=== PATIENT | male | born 1965 | race Two or more races ===

== ENCOUNTER 2018-03-02 09:01 | Emergency (ER) | payer OTHER ==
[~2018-03-02] VITALS: Ht 167.6 cm; Wt 106.6 kg
[~2018-03-02 09:01] MED LIST: ASPIRIN81 MG; AVAPRO300 MG; INVOKANA300 MG; KOMBIGLYZE XR1 EAC2; LIPITOR20 MG; SYNTHROID100 MCG; TRICOR145 MG
[2018-03-02] MEDS ORDERED: SYNTHROID175 MCG PO (09:15)
[2018-03-02] MEDS ORDERED: MUPIROCIN22 GM TOP (14:33)
[2018-03-02] MEDS ORDERED: BACTRIM DS TAB1 EACH PO (14:33)
== END 2018-03-02 15:01 | disposition home or self-care (01) ==
LOC: ER 09:01
DX: N50.812 Left testicular pain (principal)

== ENCOUNTER 2018-08-09 16:37 | Emergency (ER) | payer OTHER ==
[~2018-08-09] VITALS: Ht 167.6 cm; Wt 108.9 kg
[~2018-08-09 16:37] MED LIST changes: +BACTRIM DS TAB1 EACH PO; +MUPIROCIN22 GM TOP; +SYNTHROID175 MCG PO
== END 2018-08-09 19:57 | disposition home or self-care (01) ==
LOC: ER 16:37
DX: S13.4XXA Sprain of ligaments of cervical spine, initial encounter (principal); V49.9XXA Car occupant (driver) (passenger) injured in unspecified traffic accident, initial encounter; Y93.89 Activity, other specified; Y92.488 Other paved roadways as the place of occurrence of the external cause; Y99.8 Other external cause status

== ENCOUNTER 2019-03-21 10:01 | Emergency (ER) | payer OTHER ==
[~2019-03-21] VITALS: Ht 167.6 cm; Wt 104.3 kg
== END 2019-03-21 15:46 | disposition home or self-care (01) ==
LOC: ER 10:01
DX: I88.0 Nonspecific mesenteric lymphadenitis (principal)

== ENCOUNTER 2022-08-10 09:30 | Emergency (ER) | payer OTHER ==
[~2022-08-10] VITALS: Ht 167.6 cm; Wt 102.1 kg
[2022-08-10] MEDS ORDERED: NIFEDIPINE ER60 M1 PO (09:46)
[2022-08-10] MEDS ORDERED: PENTOXIFYLLINE400 MG PO (09:46)
[2022-08-10] MEDS ORDERED: SYNJARDY XR 121 EACH PO (09:46)
[2022-08-10] MEDS ORDERED: SYNTHROID150 MCG PO (09:47)
[2022-08-10] MEDS ORDERED: OZEMPIC1 MG/0.71 SQ (09:47)
[2022-08-10] MEDS ORDERED: LOSARTAN POTAS100 MG PO (09:47)
[2022-08-10] MEDS ORDERED: GABAPENTIN100 M2 PO (09:47)
[2022-08-10] MEDS ORDERED: MAXIMUM D3325 MCG PO (09:47)
[2022-08-10] MEDS ORDERED: FAMOTIDINE40 MG PO (09:48)
[2022-08-10] MEDS ORDERED: OMEPRAZOLE40 MG (09:48)
[2022-08-10] MEDS ORDERED: LANTUS SOL100 UNIT/1 SQ (09:49)
[2022-08-10] MEDS ORDERED: WELLBUTRIN XL150 M1 PO (09:50)
== END 2022-08-10 21:25 | disposition home or self-care (01) ==
LOC: ER 09:30
DX: K52.9 Noninfective gastroenteritis and colitis, unspecified (principal); E11.9 Type 2 diabetes mellitus without complications; I10 Essential (primary) hypertension; Z95.0 Presence of cardiac pacemaker; Z88.0 Allergy status to penicillin; E86.0 Dehydration

== ENCOUNTER 2024-02-26 00:32 | Emergency (ER) | payer OTHER ==
[~2024-02-26] VITALS: Ht 167.6 cm; Wt 101.2 kg
[~2024-02-26 00:32] MED LIST changes: +FAMOTIDINE40 MG PO; +GABAPENTIN100 M2 PO; +LANTUS SOL100 UNIT/1 SQ; +LOSARTAN POTAS100 MG PO; +MAXIMUM D3325 MCG PO; +NIFEDIPINE ER60 M1 PO; +OMEPRAZOLE40 MG; +OZEMPIC1 MG/0.71 SQ; +PENTOXIFYLLINE400 MG PO; +SYNJARDY XR 121 EACH PO; +SYNTHROID150 MCG PO; +WELLBUTRIN XL150 M1 PO
[2024-02-26] MEDS ORDERED: MOUNJARO5 MG/0.5 M SQ (01:12)
[2024-02-26 02:58] LABS: HEMATOCRIT 44.2 % (39.0-48.0); HEMOGLOBIN 14.7 g/dL (13-16.00); MEAN CELL VOLUME 80.5 fL (80.0-100.00); MEAN CORPUSCULAR HEMOGLOBIN 26.9 pg (27.00-32.0); MEAN CORPUSCULAR HGB CONC 33.4 g/dl (32.0-36.0); PLATELET COUNT 366 K/uL (150-450); RED BLOOD COUNT 5.48 M/uL (4.00-6.00); RED CELL DISTRIBUTION WIDTH 15.2 % (11.5-14.5)
== END 2024-02-26 03:27 | disposition home or self-care (01) ==
LOC: ER 00:33
DX: R04.0 Epistaxis (principal); Z88.0 Allergy status to penicillin